=== PATIENT | female | born 1950 ===

== ENCOUNTER 2018-08-10 13:02 | Outpatient (CLI) | payer OTHER ==
--- NOTE | 2018-08-10 15:30 | XRAY Report ---
Reason: M54.9 Procedure Date: 08/10/2018 Accession Number: [id number] / [id number] Procedure: XRN - Lumbar Spine 2 View CPT Code: FULL RESULT: EXAM: LUMBOSACRAL SPINE RADIOGRAPHY EXAM DATE: 08/10/2018 01:45 PM. CLINICAL HISTORY: Injury lifting COMPARISONS: None. TECHNIQUE: 3 views. FINDINGS: Alignment: Dextroscoliosis. Grade 1 anterolisthesis L4 on L5. Bones: Five [id number] lumbar vertebral bodies are present. Compressions of L3, L4 Disks: L2-L3 osteophyte L3-L4 osteophyte L4-L5 osteophyte disk space narrowing vacuum disk phenomena facet arthropathy L5-S1 osteophyte, facet arthropathy Sacroiliac Joints: Unremarkable. Soft Tissues: Vascular calcifications The visualized bowel gas pattern is normal. IMPRESSION: 1. Compressions of L3, L4. 2. Severe DJD RADIA
== END 2018-08-10 13:03 | disposition home or self-care (01) ==
LOC: DI.N 13:02
PROVIDERS: ATTEND Family Medicine
DX: M51.86 Other intervertebral disc disorders, lumbar region (principal); M47.816 Spondylosis without myelopathy or radiculopathy, lumbar region; M47.817 Spondylosis without myelopathy or radiculopathy, lumbosacral region
CPT/HCPCS: 72100

== ENCOUNTER 2022-08-15 10:20 | Outpatient (CLI) | payer OTHER ==
--- NOTE | 2022-08-16 00:01 | XRAY Report ---
PROCEDURE: Hand 3 View BILAT INDICATIONS: BILATERAL HAND PX TECHNIQUE: 3 views of each hand(s) acquired. COMPARISON: None FINDINGS: Bones: Symmetric, mildly diffusely decreased mineralization. There is diffuse joint space loss of th e radiocarpal articulations bilaterally with osseous remodeling and subcortical cystic changes, left more pronounced than right. There is apparent widening at the left scapholunate interval. Dystrophic calcification present distal to the left ulnar styloid. Tiny dystrophic calcifications present adjace nt to the right radial styloid. Asymmetric joint space loss and chondrocalcinosis involving the right first carpometacarpal articulation. Mild scattered asymmetric joint space loss and proximal and dist al digits bilaterally, as well as the right third MCP joint. Minor spurring. Mild left fifth MCP subl uxation. Marginal spurring and trace dystrophic calcifications in the distal interphalangeal joints, mainly secondary to fourth bilaterally. No fractures or dislocations. No suspicious bony lesions. Soft tissues: No suspicious soft tissue calcifications. No significant asymmetric periarticular sof t tissue swelling. IMPRESSION: 1. Scattered, mixed arthritic changes bilaterally. 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 Reviewed by: Vijaya Mcbride MD on 08/16/2022 12:00 AM PDT Approved by: Vijaya Mcbride MD on 08/16/2022 12:00 AM PDT Station ID: [id number]
== END 2022-08-15 10:21 | disposition home or self-care (01) ==
LOC: DI.N 10:20
PROVIDERS: ATTEND Internal Medicine
DX: M19.041 Primary osteoarthritis, right hand (principal); M19.042 Primary osteoarthritis, left hand; M18.11 Unilateral primary osteoarthritis of first carpometacarpal joint, right hand

== ENCOUNTER 2023-10-24 13:46 | Outpatient (CLI) | payer OTHER | END 2023-10-24 23:59 | disposition EMS.NT | LOC: EMS 13:46 | DX: Z04.1 Encounter for examination and observation following transport accident (principal) ==